=== PATIENT | female | born 1930 | race Caucasian/White ===

== ENCOUNTER 2016-08-10 11:21 | Outpatient (CLI) | payer OTHER, MEDICARE ==
--- NOTE | 2016-08-10 12:03 | DIAGNOSTIC IMAGING REPORT ---
PROCEDURE: DEXA BONE DENSITY STUDY CLINICAL INDICATION: POSTMENOPAUSAL COMPARISON: DEXA 09/26/2008 FINDINGS: LUMBAR SPINE: Bone mineral density 0.939 g/cm2, T score -1.0 normal which represents a 2.2% improvement since the previous study LEFT HIP: Bone mineral density 0.861 g/cm2, T score -0.7 normal which represents a of 14.2% and decrease from the previous study LEFT FEMORAL NECK: Bone mineral density 0.622 g/cm2, T score -2.0 osteopenia which represents a 13.8% decrease since the previous study FRACTURE RISK CALCULATION ( when applicable): 10-year fracture risk of a major osteoporotic fracture 15% and of a hip fracture 4.9% (T score greater or equal to -1.0 to: NORMAL) (T score from -1.1 to -2.4: OSTEOPENIA) (T score ess than or equal to -2.5: OSTEOPOROSIS) IMPRESSION: 1. Femoral neck osteopenia with a 10-year major fracture risk of 15% and a hip fracture risk of 4.9%
== END 2016-08-10 23:00 ==
LOC: XR SRH 11:21
DX: M85.89 Other specified disorders of bone density and structure, multiple sites (principal)